=== PATIENT | male | born 1935 | race Caucasian/White ===

== ENCOUNTER → 2016-11-20 | Outpatient (CLI) | payer OTHER, BC ==
[~2016-11-20] MED LIST: ALBUTEROL2.5 MG/31 INH; ASPIRIN EC81 M1 PO; BENICAR20 MG PO; CLONAZEPAM 0.50.5 M1 PO; DEPO-TESTO200 MG/1 M SUBQ; DUONEB 2.5-0.5 M3 ML INH; FLONASE 0.05%50 MCG NASAL; IRON325 PO; LEVAQUIN 500 M500 M3 PO; LEVAQUIN 500 M500 M5 PO; LEVOTHYROXINE0.05 MG PO; LORTAB 7.5/5001 TA3 PO; MULTI VITAMIN1 EACH PO; VITAMINC500 PO; ZOCOR 20 MG TAB20 M1 PO; ZOCOR40 MG PO
== END ==
LOC: ULTRA 09:08
DX: N28.1 Cyst of kidney, acquired (principal)

== ENCOUNTER → 2017-02-27 | Outpatient (CLI) | payer OTHER, BC ==
[~2017-02-27] VITALS: Ht 175.3 cm; Wt 84.4 kg
[~2017-02-27] MED LIST changes: +BOTOX100 UNIT IM; +HYDROCODONE-APA1 TA1 PO; +IBUPROFEN 200200 M1 PO; +OLMESARTAN-HCT1 EAC1 PO; +SIMVASTATIN40 MG PO
[2017-02-27 09:26] VITALS: BP 151/71
== END | disposition home or self-care (01) ==
LOC: PAIN 07:22
DX: M47.816 Spondylosis without myelopathy or radiculopathy, lumbar region (principal); M47.817 Spondylosis without myelopathy or radiculopathy, lumbosacral region; I10 Essential (primary) hypertension; E78.00 Pure hypercholesterolemia, unspecified; E03.9 Hypothyroidism, unspecified; J44.9 Chronic obstructive pulmonary disease, unspecified; Z98.49 Cataract extraction status, unspecified eye; Z79.82 Long term (current) use of aspirin; Z79.899 Other long term (current) drug therapy

== ENCOUNTER 2017-04-25 18:42 | Emergency (ER) | payer OTHER, BC ==
[~2017-04-25] VITALS: Ht 175.3 cm; Wt 83.9 kg
== END 2017-04-25 20:55 | disposition home or self-care (01) ==
LOC: ER 18:42
DX: S80.812A Abrasion, left lower leg, initial encounter (principal); S50.812A Abrasion of left forearm, initial encounter; S00.412A Abrasion of left ear, initial encounter; W10.8XXA Fall (on) (from) other stairs and steps, initial encounter; Y93.89 Activity, other specified; Y92.89 Other specified places as the place of occurrence of the external cause; Y99.8 Other external cause status

== ENCOUNTER → 2017-05-31 | Outpatient (CLI) | payer OTHER, BC ==
[~2017-05-31] VITALS: Ht 175.3 cm; Wt 80.9 kg
--- NOTE | ~2017-05-31 | HPC ---
[facility] [place] [address] PAIN MANAGEMENT CONSULTATION Name: GUNNER BROWN [facility] #[id number] Admission: 05/31/17 Attend Phys: Reinier Urias MD Discharge: Date of : 37 Report #: [id number] THIS REPORT FOR: //name// CC: Reinier Steinberg MD DATE OF SERVICE: 05/31/2017 FOLLOWUP COMPLAINT: The pain was very well controlled over the last 3 months, but now it is beginning to come back. FOLLOWUP HISTORY: The patient is an 82-year-old gentleman who has been seen in the pain clinic because of low back pain. He has been experiencing facet joint pain and discomfort. He underwent injections in the facet areas at the last visit. He noticed significant improvement in this. He has been more active and playing golf. He has noted some return of pain and discomfort in the low back area and would like to proceed with another injection in the affected areas. He recently received a flu shot. He has been told that his A1c was about 7. He has been trying to govern his sugars accordingly. He has been keeping a diary of his blood sugars. He has lost about 10 pounds as a result of improvements in his activity and eating habits. PHYSICAL EXAMINATION: Blood pressure 142/71, pulse 89, respiratory rate 16, room air saturation 95%. Height 5 feet 9 inches, weight 178 pounds, BMI is 26.3. The patient has pain and discomfort in the lower portion of his back in the area of the L5 facet joint. IMPRESSION: 1. 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 2. Hypertension. 3. Diabetes. The patient A1c was approximately 7.? hypercholesterolemia, hypothyroidism. PLAN: We discussed treatment options with the patient. Given that he has recently had a flu shot, we will wait 2 weeks after this flu shot to perform the epidural steroid injection. We explained that steroids can decrease ones' immune system's ability to produce antibodies. We would like to thank you for letting us participate in his care. We hope he continues to improve. By: [id number] Reinier Urias MD /PMT
[2017-05-31 08:35] VITALS: BP 142/71
== END | disposition home or self-care (01) ==
LOC: PAIN 08:30
DX: M47.816 Spondylosis without myelopathy or radiculopathy, lumbar region (principal); M47.817 Spondylosis without myelopathy or radiculopathy, lumbosacral region; I10 Essential (primary) hypertension; E11.9 Type 2 diabetes mellitus without complications; E78.00 Pure hypercholesterolemia, unspecified; E03.9 Hypothyroidism, unspecified; Z98.890 Other specified postprocedural states; Z79.82 Long term (current) use of aspirin; Z79.899 Other long term (current) drug therapy

== ENCOUNTER → 2018-03-13 | Outpatient (CLI) | payer OTHER, BC | LOC: HYPER 06:31 | DX: E11.622 Type 2 diabetes mellitus with other skin ulcer (principal); L89.153 Pressure ulcer of sacral region, stage 3; L98.491 Non-pressure chronic ulcer of skin of other sites limited to breakdown of skin; R21 Rash and other nonspecific skin eruption; I10 Essential (primary) hypertension; E78.5 Hyperlipidemia, unspecified; N40.1 Benign prostatic hyperplasia with lower urinary tract symptoms; E78.00 Pure hypercholesterolemia, unspecified; K21.9 Gastro-esophageal reflux disease without esophagitis; B35.6 Tinea cruris; J44.9 Chronic obstructive pulmonary disease, unspecified; Z87.01 Personal history of pneumonia (recurrent); Z85.828 Personal history of other malignant neoplasm of skin; Z98.49 Cataract extraction status, unspecified eye; Z87.891 Personal history of nicotine dependence ==

== ENCOUNTER → 2018-04-02 | Outpatient (CLI) | payer OTHER, BC | LOC: HYPER 06:59 | DX: E11.622 Type 2 diabetes mellitus with other skin ulcer (principal); L89.153 Pressure ulcer of sacral region, stage 3; L98.491 Non-pressure chronic ulcer of skin of other sites limited to breakdown of skin; B35.6 Tinea cruris; K21.9 Gastro-esophageal reflux disease without esophagitis; N40.1 Benign prostatic hyperplasia with lower urinary tract symptoms; I10 Essential (primary) hypertension; E78.00 Pure hypercholesterolemia, unspecified; E78.5 Hyperlipidemia, unspecified; J44.9 Chronic obstructive pulmonary disease, unspecified; Z85.828 Personal history of other malignant neoplasm of skin; Z98.49 Cataract extraction status, unspecified eye; Z87.891 Personal history of nicotine dependence ==

== ENCOUNTER → 2018-05-19 | Outpatient (CLI) | payer OTHER, BC | LOC: HYPER 07:08 | DX: E11.622 Type 2 diabetes mellitus with other skin ulcer (principal); L98.491 Non-pressure chronic ulcer of skin of other sites limited to breakdown of skin; L89.153 Pressure ulcer of sacral region, stage 3; B35.6 Tinea cruris; B36.9 Superficial mycosis, unspecified; E78.00 Pure hypercholesterolemia, unspecified; E78.5 Hyperlipidemia, unspecified; J44.9 Chronic obstructive pulmonary disease, unspecified; N40.1 Benign prostatic hyperplasia with lower urinary tract symptoms; K21.9 Gastro-esophageal reflux disease without esophagitis; I10 Essential (primary) hypertension; Z87.891 Personal history of nicotine dependence; Z85.828 Personal history of other malignant neoplasm of skin ==

== ENCOUNTER → 2018-06-09 | Outpatient (CLI) | payer OTHER, BC | LOC: HYPER 06:51 | DX: E11.622 Type 2 diabetes mellitus with other skin ulcer (principal); L89.153 Pressure ulcer of sacral region, stage 3; L98.491 Non-pressure chronic ulcer of skin of other sites limited to breakdown of skin; B36.9 Superficial mycosis, unspecified; B35.6 Tinea cruris; E78.00 Pure hypercholesterolemia, unspecified; E78.5 Hyperlipidemia, unspecified; I10 Essential (primary) hypertension; J44.9 Chronic obstructive pulmonary disease, unspecified; K21.9 Gastro-esophageal reflux disease without esophagitis; N40.1 Benign prostatic hyperplasia with lower urinary tract symptoms; Z87.891 Personal history of nicotine dependence; Z85.828 Personal history of other malignant neoplasm of skin ==

== ENCOUNTER → 2018-08-11 | Outpatient (CLI) | payer OTHER, BC | LOC: RAD 08:55 | DX: J98.4 Other disorders of lung (principal); M47.814 Spondylosis without myelopathy or radiculopathy, thoracic region ==

== ENCOUNTER 2019-02-22 14:33 | Emergency (ER) | payer OTHER, BC ==
[~2019-02-22] VITALS: Ht 175.3 cm; Wt 85.3 kg
[2019-02-22 16:43] LABS: URINE BILIRUBIN NEGATIVE (Negative); URINE BLOOD NEGATIVE (Negative); URINE CLARITY CLEAR; URINE COLOR YELLOW; URINE GLUCOSE-RANDOM* NEGATIVE (Negative); URINE KETONES NEGATIVE (Negative); URINE LEUKOCYTES-REFLEX NEGATIVE (Negative); URINE NITRITE-REFLEX NEGATIVE (Negative); URINE PROTEIN (DIPSTICK) 1+ (Negative); URINE SPECIFIC GRAVITY 1.015 (1.005-1.035); URINE UROBILINOGEN 0.2 E.U./dl (0.2-1.0)
[2019-02-22 16:53] LABS: MUCUS 0-3 Light strn/LPF (None Seen); SQUAMOUS 0-3 Few /LPF (0-3); URINE RBC 0-2 Rare /HPF (0-2)
[2019-02-22 16:54] LABS: BACTERIA-REFLEX None Seen /HPF (None Seen); CASTS None Seen /LPF (None Seen); CRYSTALS None Seen /LPF (None Seen); URINE WBC-REFLEX None Seen /HPF (0-5)
[2019-02-22 17:03] LABS: ABSOLUTE NEUTROPHILS 7.2 thou/uL (1.4-8.2); BASOPHILS 0.7 % (0.0-2.0); EOSINOPHILS 4.1 % (0.0-3.0); HEMATOCRIT 50.1 % (42.0-52.0); HEMOGLOBIN 16.9 gm/dL (14.0-18.0); LYMPHOCYTES 16.9 % (24.0-44.0); MCH 31.8 pg (26.0-34.0); MCHC 33.7 g/dL (28.0-37.0); MCV 94.4 fL (80.0-100.0); MONOCYTES 7.9 % (1.0-8.0); PLATELET COUNT 331 thou/uL (150-400); POLYS 70.4 % (36.0-66.0); RDW 12.8 % (10.5-14.5); WBC 10.2 thou/uL (4.0-11.0)
[2019-02-22 17:14] LABS: ANION GAP 9 mmol/L (7-16); BUN 37 mg/dL (7-18); CALCIUM 9.4 mg/dL (8.5-10.1); CHLORIDE 101 mmol/L (98-107); CO2 28 mmol/L (21-32); CREATININE 1.4 mg/dL (0.7-1.3); GLUCOSE 109 mg/dL (74-106); POTASSIUM 4.2 mmol/L (3.5-5.1); SODIUM 138 mmol/L (136-145)
[2019-02-22 17:24] LABS: ALBUMIN 4.3 g/dL (3.4-5.0); SGOT 32 U/L (15-37); SGPT 30 U/L (30-65); TOTAL BILIRUBIN 0.2 mg/dL (<0.1-1.0); TOTAL PROTEIN 8.1 g/dL (6.4-8.2); TROPONIN-I <0.06 ng/mL (<0.06)
[2019-02-22 18:54] VITALS: BP 139/62
--- NOTE | 2019-02-23 08:11 | EKG ---
[address] [place] [address] ELECTROCARDIOGRAM REPORT Name: KEVINGUNNER Sotelo Room #: DEP JAROD Bass#: [id number] ������������������ Admission: 02/22/19 ������������������ Attend Phys: Discharge: 02/22/19 ������������������ Date of : 37 Report #: [id number] ����������������������������������������������������������������� [id number] THIS REPORT FOR: //name// [facility] ED Test Date: 2019-02-22 Test Time: 16:42:26 Pat Name: GUNNER BROWN Department: Room: Gender: Director Of Intelligence: 12 : 1935 Requested By: Radha Hernandes Order Number: [id number] MD: Macho Cadena Measurements Intervals [place] Rate: 65 P: 62 RI: 194 QRS: 40 QRSD: 101 T: 53 QT: 399 QTc: 415 Interpretive Statements Sinus rhythm Normal tracing Compared to ECG 11/26/2012 00:04:55 No significant changes Electronically Signed On 02-23-2019 8:11:05 CDT by Macho Cadena [email or web address] ��������������������������������������������� <ELECTRONICALLY SIGNED> ���������������������������������������� By: Macho Cadena MD, [facility] ��������������������������������������������� 02/23/19 0811 1642 1642 Macho Cadena MD, FACC /EPI
== END 2019-02-22 18:55 | disposition home or self-care (01) ==
LOC: ER 14:33
PROVIDERS: Physician Assistant
DX: R53.1 Weakness (principal); E11.9 Type 2 diabetes mellitus without complications; E78.5 Hyperlipidemia, unspecified; E03.9 Hypothyroidism, unspecified; Z87.891 Personal history of nicotine dependence

== ENCOUNTER → 2019-03-26 | Outpatient (CLI) | payer OTHER, BC | LOC: RAD 10:54 → SPEECH 10:54 → RAD 16:22 | DX: R13.12 Dysphagia, oropharyngeal phase (principal) ==

== ENCOUNTER → 2019-04-03 | Outpatient (CLI) | payer OTHER, BC | LOC: MRI 07:20 | DX: R25.8 Other abnormal involuntary movements (principal) ==

== ENCOUNTER 2019-04-19 14:14 | Emergency (ER) | payer OTHER, BC ==
[~2019-04-19] VITALS: Ht 175.3 cm; Wt 81.7 kg
[~2019-04-19 14:14] MED LIST changes: -LEVOTHYROXINE0.05 MG PO; +SYNTHROID100 MC1 PO
[2019-04-19 14:34] VITALS: BP 170/68
[2019-04-19] MEDS ORDERED: DOXYCYCLINE HY100 M3 PO (14:37)
[2019-04-19] MEDS ORDERED: GLIMEPIRIDE1 MG PO (14:37)
[2019-04-19] MEDS ORDERED: BYSTOLIC 5 MG5 M1 PO (14:38)
[2019-04-19] MEDS ORDERED: OLMESARTAN-HCT1 EAC1 PO (14:39)
[2019-04-19 15:23] LABS: URINE BILIRUBIN NEGATIVE (Negative); URINE BLOOD NEGATIVE (Negative); URINE CLARITY CLEAR; URINE COLOR YELLOW; URINE GLUCOSE-RANDOM* NEGATIVE (Negative); URINE KETONES NEGATIVE (Negative); URINE LEUKOCYTES-REFLEX NEGATIVE (Negative); URINE NITRITE-REFLEX NEGATIVE (Negative); URINE PROTEIN (DIPSTICK) TRACE (Negative); URINE UROBILINOGEN 0.2 E.U./dl (0.2-1.0)
[2019-04-19 16:05] LABS: ABSOLUTE NEUTROPHILS 8.5 thou/uL (1.4-8.2); BASOPHILS 0.7 % (0.0-2.0); EOSINOPHILS 1.9 % (0.0-3.0); HEMATOCRIT 44.6 % (42.0-52.0); HEMOGLOBIN 15.6 gm/dL (14.0-18.0); LYMPHOCYTES 11.7 % (24.0-44.0); MCH 32.1 pg (26.0-34.0); MCHC 34.9 g/dL (28.0-37.0); MCV 91.7 fL (80.0-100.0); MONOCYTES 6.7 % (1.0-8.0); PLATELET COUNT 359 thou/uL (150-400); RBC 4.87 mil/uL (4.50-6.00); RDW 13.1 % (10.5-14.5); WBC 10.8 thou/uL (4.0-11.0)
[2019-04-19 16:18] LABS: CALCIUM 9.4 mg/dL (8.5-10.1); CREATININE 1.3 mg/dL (0.7-1.3); POTASSIUM 4.1 mmol/L (3.5-5.1)
[2019-04-19 16:23] LABS: MAGNESIUM 1.9 mg/dL (1.8-2.4)
[2019-04-19] MEDS ORDERED: KLONOPIN0.5 MG PO (17:12)
== END 2019-04-19 17:29 | disposition home or self-care (01) ==
LOC: ER 14:14
PROVIDERS: Emergency Medicine
DX: F41.9 Anxiety disorder, unspecified (principal); S31.809A Unspecified open wound of unspecified buttock, initial encounter; E11.9 Type 2 diabetes mellitus without complications; E03.9 Hypothyroidism, unspecified; E78.5 Hyperlipidemia, unspecified; Z87.891 Personal history of nicotine dependence; X58.XXXA Exposure to other specified factors, initial encounter; Y92.89 Other specified places as the place of occurrence of the external cause; Y93.89 Activity, other specified; Y99.8 Other external cause status

== ENCOUNTER → 2019-04-22 | Outpatient (CLI) | payer OTHER, BC ==
[~2019-04-22] MED LIST changes: +BYSTOLIC 5 MG5 M1 PO; +DOXYCYCLINE HY100 M3 PO; +GLIMEPIRIDE1 MG PO; +KLONOPIN0.5 MG PO
== END ==
LOC: HYPER 07:01
DX: E11.622 Type 2 diabetes mellitus with other skin ulcer (principal); L89.153 Pressure ulcer of sacral region, stage 3; L98.411 Non-pressure chronic ulcer of buttock limited to breakdown of skin; I10 Essential (primary) hypertension; E78.00 Pure hypercholesterolemia, unspecified; E78.5 Hyperlipidemia, unspecified; K21.9 Gastro-esophageal reflux disease without esophagitis; J44.9 Chronic obstructive pulmonary disease, unspecified; Z87.01 Personal history of pneumonia (recurrent); Z85.828 Personal history of other malignant neoplasm of skin; Z87.891 Personal history of nicotine dependence

== ENCOUNTER → 2019-08-24 | Outpatient (CLI) | payer OTHER, BC | LOC: HYPER 10:10 | DX: E11.622 Type 2 diabetes mellitus with other skin ulcer (principal); L89.312 Pressure ulcer of right buttock, stage 2; L98.411 Non-pressure chronic ulcer of buttock limited to breakdown of skin; L89.153 Pressure ulcer of sacral region, stage 3; L98.491 Non-pressure chronic ulcer of skin of other sites limited to breakdown of skin; E78.00 Pure hypercholesterolemia, unspecified; E78.5 Hyperlipidemia, unspecified; I10 Essential (primary) hypertension; J44.9 Chronic obstructive pulmonary disease, unspecified; K21.9 Gastro-esophageal reflux disease without esophagitis; Z85.828 Personal history of other malignant neoplasm of skin; Z87.891 Personal history of nicotine dependence ==

== ENCOUNTER → 2019-08-24 | Outpatient (CLI) | payer OTHER, BC | LOC: SJCVC 11:32 | DX: E78.00 Pure hypercholesterolemia, unspecified (principal); M79.604 Pain in right leg; R94.31 Abnormal electrocardiogram [ECG] [EKG]; M79.605 Pain in left leg; I10 Essential (primary) hypertension; K21.9 Gastro-esophageal reflux disease without esophagitis; E78.5 Hyperlipidemia, unspecified; E03.9 Hypothyroidism, unspecified; Z85.3 Personal history of malignant neoplasm of breast; Z79.899 Other long term (current) drug therapy ==

== ENCOUNTER → 2019-08-31 | Outpatient (CLI) | payer OTHER, BC | LOC: MRI 07:06 | DX: M51.34 Other intervertebral disc degeneration, thoracic region (principal); M51.36 Other intervertebral disc degeneration, lumbar region; M12.88 Other specific arthropathies, not elsewhere classified, other specified site; M51.26 Other intervertebral disc displacement, lumbar region; M48.061 Spinal stenosis, lumbar region without neurogenic claudication; M51.37 Other intervertebral disc degeneration, lumbosacral region; M51.27 Other intervertebral disc displacement, lumbosacral region; N28.1 Cyst of kidney, acquired ==

== ENCOUNTER → 2019-09-02 | Outpatient (CLI) | payer OTHER, BC ==
[~2019-09-02] VITALS: Ht 175.3 cm; Wt 81.6 kg
[2019-09-02 08:48] VITALS: BP 153/75
--- NOTE | 2019-09-02 08:59 | NUR ---
Pain Clinic Assessment: 1. History of Osteoarthritis: SPINE JOINTS History of Rheumatoid Arthritis: 2. Height: 5 ft. 9 in. 175.3 cm. Weight: 180.0 lb. oz. 81.648 kg. Patient's BMI: 26.6 3. Vital Signs: BP: 153/75 Pulse: 66 Resp: 14 Temp: 02 Sat: 96 ECG Mon: 4. Pain Intensity: 0 TODAY ON STEROIDS 5. Fall Risk: Dizziness: N Needs help standing or walking: N Fallen in the last 3 months: N Fall risk comments: 6. Patient on Blood Thinner: None 7. History of Hypertension: Y 8. Opioid Therapy greater than 6 weeks: N Opiate Contract Signed: 9. Risk Assessment Tool Provided: 10. Functional Assessment Tool: 11. Recreational Drug Use: Never Drug Type: Tobacco Use: Former Smoker Tobacco Type: Amount or Packs/day: How Many Years: Alcohol Use: Past use Frequency: Quant:
== END | disposition home or self-care (01) ==
LOC: PAIN 06:47
DX: M54.5 Low back pain (principal); G89.29 Other chronic pain; F41.9 Anxiety disorder, unspecified; Z98.890 Other specified postprocedural states; Z79.82 Long term (current) use of aspirin; Z87.891 Personal history of nicotine dependence; Z79.899 Other long term (current) drug therapy

== ENCOUNTER → 2019-10-02 | Outpatient (CLI) | payer OTHER, BC | LOC: HYPER 08:36 | DX: E11.622 Type 2 diabetes mellitus with other skin ulcer (principal); L89.313 Pressure ulcer of right buttock, stage 3; L98.411 Non-pressure chronic ulcer of buttock limited to breakdown of skin; L89.152 Pressure ulcer of sacral region, stage 2; L98.491 Non-pressure chronic ulcer of skin of other sites limited to breakdown of skin; E11.51 Type 2 diabetes mellitus with diabetic peripheral angiopathy without gangrene; L84 Corns and callosities; J44.9 Chronic obstructive pulmonary disease, unspecified; K21.9 Gastro-esophageal reflux disease without esophagitis; E78.00 Pure hypercholesterolemia, unspecified; E78.5 Hyperlipidemia, unspecified; I10 Essential (primary) hypertension; Z85.828 Personal history of other malignant neoplasm of skin; Z87.891 Personal history of nicotine dependence; Z79.84 Long term (current) use of oral hypoglycemic drugs ==

== ENCOUNTER → 2020-01-22 | Outpatient (CLI) | payer OTHER, BC ==
[~2020-01-22] VITALS: Ht 175.3 cm; Wt 80.6 kg
[~2020-01-22] MED LIST changes: +TRAMADOL 50 MG50 MG PO; +ULTRAM 50MG TAB50 MG PO
[2020-01-22 08:25] VITALS: BP 153/68
--- NOTE | 2020-01-22 08:32 | NUR ---
Pain Clinic Assessment: 1. History of Osteoarthritis: SPINE JOINTS History of Rheumatoid Arthritis: 2. Height: 5 ft. 9 in. 175.3 cm. Weight: 177.6 lb. oz. 80.559 kg. Patient's BMI: 26.2 3. Vital Signs: BP: 153/68 Pulse: 65 Resp: 18 Temp: 02 Sat: 93 ECG Mon: 4. Pain Intensity: 6-7 5. Fall Risk: Dizziness: N Needs help standing or walking: N Fallen in the last 3 months: Y Fall risk comments: 6. Patient on Blood Thinner: None 7. History of Hypertension: Y 8. Opioid Therapy greater than 6 weeks: N Opiate Contract Signed: 9. Risk Assessment Tool Provided: 10. Functional Assessment Tool: 11. Recreational Drug Use: Never Drug Type: Tobacco Use: Former Smoker Tobacco Type: Cigarettes Amount or Packs/day: How Many Years: Alcohol Use: Past use Frequency: Quant:
--- NOTE | 2020-01-22 09:18 | NUR ---
Pain Clinic Assessment: 1. History of Osteoarthritis: SPINE JOINTS History of Rheumatoid Arthritis: 2. Height: 5 ft. 9 in. 175.3 cm. Weight: 177.6 lb. oz. 80.559 kg. Patient's BMI: 26.2 3. Vital Signs: BP: 153/68 Pulse: 65 Resp: 18 Temp: 02 Sat: 93 ECG Mon: 4. Pain Intensity: 6-7 5. Fall Risk: Dizziness: N Needs help standing or walking: N Fallen in the last 3 months: Y Fall risk comments: 6. Patient on Blood Thinner: None 7. History of Hypertension: Y 8. Opioid Therapy greater than 6 weeks: N Opiate Contract Signed: 9. Risk Assessment Tool Provided: 0-LOW RISK 10. Functional Assessment Tool: 11. Recreational Drug Use: Never Drug Type: Tobacco Use: Former Smoker Tobacco Type: Cigarettes Amount or Packs/day: How Many Years: Alcohol Use: Past use Frequency: Quant:
--- NOTE | 2020-01-22 15:51 | HPC ---
[facility] [address] [place] [address] PAIN MANAGEMENT CONSULTATION Name: GUNNER BROWN Room #: REG KAMALA SharriMelany#: [id number] Admission: 01/22/20 Attend Phys: Reinier Urias MD Discharge: Date of : 37 Report #: [id number] THIS REPORT FOR: cc: Niraj Steinberg MD, Neal A. MD Brown,Reinier Storm MD ~ CC: Reinier Steinberg DATE OF SERVICE: 01/22/2020 CHIEF COMPLAINT: "Here for epidural injection, my back is really hurting." HISTORY: The patient is a very pleasant 84-year-old gentleman who has been followed in the Pain Clinic. He has undergone epidural steroid injections in the past. He has found that they were beneficial. He has been suffering. He has had limited mobility. He is unable to play golf. Overall, things are quite uncomfortable and he has returned to the pain clinic with the hopes of undergoing an epidural injection. He has pain in his legs bilaterally. Has some right hip as well as some left thigh pain. The patient states that he fell and injured his left hip area in the recent past. He is still having some pain and discomfort down the left hip side and into the thigh. He rates his pain as a 6-7/10. Notes that the pain improves with heat, sitting, medications and massage. ALLERGIES: No known drug allergies. CURRENT MEDICATIONS: Clonazepam 0.5 mg t.i.d., tramadol 50 mg t.i.d., olmesartan/hydrochlorothiazide 40/12.5, Bystolic 10 mg daily, glimepiride 1 mg, doxycycline 100 mg b.i.d., vitamins, aspirin 81 mg, levothyroxine 100 mcg. PAIN CLINIC ASSESSMENT AND PQRS: 1. The patient has some osteoarthritic changes in his joints, back and spine. He is not being treated for rheumatoid arthritis. 2. Height 5 feet 9 inches, weight 177 pounds, BMI is 26. 3. Vital signs: Blood pressure 153/68, pulse 65, respiratory rate 18, room air saturation 93%. 4. Pain intensity -02/25. 5. Fall risk. The patient did fall a few weeks ago and did not need medical attention. 6. Blood thinner. The patient is not on a blood thinning medication. 7. Hypertension. The patient is being treated for hypertension. 8. Opioids greater than 6 weeks. The patient is receiving tramadol. 9. Risk assessment tool, low for opioid use. 10. Functional assessment tool, . 11. Recreational drug use. The patient denies. [address] [address] PAIN MANAGEMENT CONSULTATION Name: KEVINGUNNER Deepak Room #: REG CLI Kali#: [id number] Admission: 01/22/20 Attend Phys: Reinier Urias MD Discharge: Date of : 37 Report #: [id number] 12. Tobacco: The patient denies. 13. Alcohol: The patient denies. PHYSICAL EXAMINATION: GENERAL: The patient is a well-developed, well-nourished white male. Appears his stated age of 83. He is alert and oriented x 3. His affect is appropriate. Speech is fluent. HEENT: Normocephalic, atraumatic. Extraocular eye muscles intact. NECK: Without adenopathy. Notes some increased benefit and movement in his right shoulder. HEART: Regular rate. ABDOMEN: Nontender. EXTREMITIES: Upper extremity muscle strength judged to be 4+/5 for the major muscle groups in the upper extremity. Lower extremity muscle strength actually 4+/5 for the major muscle groups in the lower extremity. The patient walks with a cane. Complains of pain and discomfort that remains in the L3-L4 dermatomal distribution. IMPRESSION: 1. Lumbar radiculopathy, L3-L4. 2. History of right deltoid pain, which is improved with increased muscle use. 3. History of lumbosacral spondylosis with facet pain. 4. Hypertension. 5. Diabetes. 6. Hypercholesterolemia. 7. Hypothyroidism. RECOMMENDATIONS: We discussed treatment options with the patient. Risks and benefits of an epidural steroid injection were discussed. Possible complications of the procedure, which could include but are not limited to infection, worsening of pain, no improvement in pain, bleeding, nerve damage were discussed and the patient elects to proceed. We have discussed that the COVID-19 virus is around. Should he become infected he may have any more difficult time survive in it, then he would have not had the epidural injection. Overall, he feels his pain is quite problematic and limiting. He is staying at home. He would like to proceed with an injection. PROCEDURE NOTE: The patient was taken to the procedure area. He was then assisted in getting on the examination table. His back was sterilely prepped with a Betadine solution. A 0.25% bupivacaine was infiltrated at the L3-L4 interspace. A 17-gauge Tuohy with loss of resistance technique was used to gain access to the epidural space. There was no CSF, heme or paresthesia. Total of 80 mg of Depo-Medrol, 40 mg of triamcinolone was injected. The patient tolerated the procedure well. He remained in the pain clinic for an appropriate [address] [address] PAIN MANAGEMENT CONSULTATION Name: GUNNER BROWN [facility] #: [facility] [id number] Admission: 01/22/20 Attend Phys: Reinier Urias MD Discharge: Date of : 37 Report #: [id number] amount of time. Total of 15 seconds fluoroscopy time was used. He will follow up in the future as needed. <ELECTRONICALLY SIGNED> By: Reinier Urias MD 01/22/20 1551 1025 1324 Reinier Urias MD /PMT
== END | disposition home or self-care (01) ==
LOC: PAIN 06:42
PROVIDERS: ATTEND Anesthesiology Pain Medicine
DX: M54.16 Radiculopathy, lumbar region (principal); G89.29 Other chronic pain; I10 Essential (primary) hypertension; E11.9 Type 2 diabetes mellitus without complications; E03.9 Hypothyroidism, unspecified; E78.00 Pure hypercholesterolemia, unspecified; Z98.890 Other specified postprocedural states; Z79.899 Other long term (current) drug therapy

== ENCOUNTER → 2020-02-24 | Outpatient (CLI) | payer OTHER, BC | LOC: SJCVC 14:37 | PROVIDERS: ATTEND Internal Medicine Cardiovascular Disease | DX: R07.9 Chest pain, unspecified (principal); I10 Essential (primary) hypertension; E78.00 Pure hypercholesterolemia, unspecified; E11.9 Type 2 diabetes mellitus without complications; G20 Parkinson's disease ==

== ENCOUNTER → 2020-06-15 | Outpatient (CLI) | payer OTHER, BC ==
[~2020-06-15] VITALS: Ht 175.3 cm; Wt 78.3 kg
--- NOTE | ~2020-06-15 | HPC ---
[facility] [address] [address] PAIN MANAGEMENT CONSULTATION Name: GUNNER BROWN Room #: REG KAMALA aKli#: [id number] Admission: 06/15/20 Attend Phys: Reinier Urias MD Discharge: Date of : 37 Report #: [id number] CC: Reinier Steinberg DATE OF SERVICE: 06/15/2020 CHIEF COMPLAINT: Return of back and thigh pain. HISTORY: The patient is an 85-year-old gentleman who has been seen in the pain clinic in the past because of lumbar radiculopathy. He has undergone epidural steroid injections. These have been beneficial. He is having some pain and discomfort in the lower portion of his back. Has some pain that radiates into the left side in the anterior portion of his thigh. Does note some weakness in this area. He has had epidural steroid injections in this zone. After the last injection, he gleaned benefit from this pain. He has noted now that the pain has increased. He has been sheltering at home because of the COVID-19 pandemic. He has ventured to the pain clinic with hopes of undergoing an epidural steroid injection to help quell his pain. ALLERGIES: No known drug allergies. CURRENT MEDICATIONS: Clonazepam 0.5 mg t.i.d., tramadol 50 mg t.i.d., olmesartan/hydrochlorothiazide 40/12.5, Bystolic 10 mg daily, glimepiride 1 mg, doxycycline 100 mg b.i.d., vitamins, aspirin 81 mg, levothyroxine 100 mcg. PAIN CLINIC ASSESSMENT AND PQRS: 1. The patient has some osteoarthritic changes in his joints. They involve his back as well as his spine. He is not being treated for rheumatoid arthritis. 2. Height 5 feet 9 inches, weight 172 pounds, BMI is 25.5. 3. Vital Signs: Blood pressure 138/64, pulse 65, respiratory rate 16, room air saturation 98%. 4. Pain intensity, 6-7/10. 5. Fall history. The patient has not fallen in the last 3 months. 6. Blood thinner. The patient is not on a blood thinning medication. 7. Hypertension. The patient is being treated for hypertension. 8. Opioids greater than 6 weeks. The patient receives medication from one source. 9. Risk assessment tool, low for opioid use. 10. Functional assessment tool, . 11. Recreational drug use. The patient denies. 12. Tobacco. The patient is a former smoker. 13. Alcohol. The patient denies frequent use of alcoholic beverages. PHYSICAL EXAMINATION: GENERAL: The patient is a well-developed, well-nourished, white male. Appears his stated age. He is alert and oriented x 3. His affect is appropriate. Speech is fluent. HEENT: Normocephalic, atraumatic. Extraocular eye muscles intact. The patient is wearing a facial covering. NECK: Without adenopathy. Some increase in discomfort in his right shoulder. HEART: Regular rate. ABDOMEN: Nontender. EXTREMITIES: Upper extremity muscle strength judged to be 4+/5 for the major muscle groups in the upper extremity. Lower extremity strength is 4+/5 for the major muscle groups in the lower extremity. The patient has pain and discomfort in the L3-L4 dermatomal distribution involving the left leg. He has walked using a cane in the past. He is quite rigid. The patient is limited in his axial flexibility. IMPRESSION: 1. Lumbar radiculopathy, L3-L4. 2. History of right-sided deltoid pain. 3. History of lumbosacral spondylosis with facet pain. 4. Hypertension. 5. Diabetes. 6. Hypercholesterolemia. 7. Hypothyroidism. RECOMMENDATIONS: We discussed treatment options with the patient. Risks and benefits of an epidural steroid injection were discussed. Possible complications of the procedure were reviewed. They include but are not limited to infection, worsening of pain, no improvement in pain, nerve damage, bleeding, headache. The patient does have diabetes. There is possibility of increased blood sugars as a result of the injection. We also discussed with the patient the COVID-19 pandemic. He is aware that this is problematic. He was advised that steroids can decrease one's immunity. One may not be fair as well if infected after steroid injection. The patient elects to proceed. PROCEDURE NOTE: The patient was taken to the procedure area. He was then assisted in getting on the examination table. A pillow was placed in the abdomen to bolster and improve positioning. His back was sterilely prepped with a Betadine solution and allowed to dry. A 0.25% bupivacaine was infiltrated at the L3-L4 interspace. A 17-gauge Tuohy with loss of resistance technique was used to gain access to the epidural space. There was no CSF, heme or paresthesia. Total of 80 mg Depo-Medrol, 40 mg triamcinolone and 2 mL of 0.25% bupivacaine was injected. The patient tolerated the procedure well. He remained in the pain clinic for an appropriate amount of time. Total of 26 seconds fluoroscopy time was used. The patient will follow up in the future as needed. He will monitor his blood sugars. We would like to thank you for letting us participate in his care. We hope he continues to improve. By: [id number] Reinier Urias MD /PASCALE
[2020-06-15 10:35] VITALS: BP 138/64
--- NOTE | 2020-06-15 10:53 | NUR ---
Pain Clinic Assessment: 1. History of Osteoarthritis: SPINE JOINTS History of Rheumatoid Arthritis: Not Applicable 2. Height: 5 ft. 9 in. 175.3 cm. Weight: 172.6 lb. oz. 78.291 kg. Patient's BMI: 25.5 3. Vital Signs: BP: 138/64 Pulse: 67 Resp: 16 Temp: 02 Sat: 98 ECG Mon: 4. Pain Intensity: 6-7 5. Fall Risk: Dizziness: N Needs help standing or walking: N Fallen in the last 3 months: Y Fall risk comments: 6. Patient on Blood Thinner: None 7. History of Hypertension: Y 8. Opioid Therapy greater than 6 weeks: N Opiate Contract Signed: 9. Risk Assessment Tool Provided: 0-LOW RISK 10. Functional Assessment Tool: 11. Recreational Drug Use: Never Drug Type: Tobacco Use: Former Smoker Tobacco Type: Amount or Packs/day: How Many Years: Alcohol Use: Past use Frequency: Quant:
== END | disposition home or self-care (01) ==
LOC: PAIN 06:52
PROVIDERS: ATTEND Anesthesiology Pain Medicine
DX: M54.16 Radiculopathy, lumbar region (principal); G89.29 Other chronic pain; I10 Essential (primary) hypertension; E11.9 Type 2 diabetes mellitus without complications; E78.00 Pure hypercholesterolemia, unspecified; E03.9 Hypothyroidism, unspecified; Z98.890 Other specified postprocedural states; Z79.899 Other long term (current) drug therapy

== ENCOUNTER → 2020-08-03 | Outpatient (CLI) | payer OTHER, BC | LOC: TELEPC 06:53 → PAIN 09:49 → TELEPC 10:27 | PROVIDERS: ATTEND Anesthesiology Pain Medicine | DX: M54.16 Radiculopathy, lumbar region (principal); I10 Essential (primary) hypertension; E78.00 Pure hypercholesterolemia, unspecified; E03.9 Hypothyroidism, unspecified; Z87.39 Personal history of other diseases of the musculoskeletal system and connective tissue; Z88.8 Allergy status to other drugs, medicaments and biological substances; Z79.899 Other long term (current) drug therapy ==

== ENCOUNTER → 2020-11-30 | Outpatient (CLI) | payer OTHER, BC ==
[~2020-11-30] VITALS: Ht 175.3 cm; Wt 76.5 kg
[2020-11-30 09:42] VITALS: BP 124/56
--- NOTE | 2020-11-30 10:09 | NUR ---
Pain Clinic Assessment: 1. History of Osteoarthritis: SPINE JOINTS History of Rheumatoid Arthritis: Not Applicable 2. Height: 5 ft. 9 in. 175.3 cm. Weight: 168.6 lb. oz. 76.476 kg. Patient's BMI: 24.9 3. Vital Signs: BP: 124/56 Pulse: 65 Resp: 14 Temp: 02 Sat: 97 ECG Mon: 4. Pain Intensity: 2 TO 8 5. Fall Risk: Dizziness: N Needs help standing or walking: N Fallen in the last 3 months: N Fall risk comments: 6. Patient on Blood Thinner: None 7. History of Hypertension: Y 8. Opioid Therapy greater than 6 weeks: N Opiate Contract Signed: 9. Risk Assessment Tool Provided: 0-LOW RISK 10. Functional Assessment Tool: 11. Recreational Drug Use: Never Drug Type: Tobacco Use: Former Smoker Tobacco Type: Amount or Packs/day: How Many Years: Alcohol Use: Past use Frequency: Quant:
== END | disposition home or self-care (01) ==
LOC: PAIN 10-12 06:48
PROVIDERS: ATTEND Anesthesiology Pain Medicine
DX: M54.16 Radiculopathy, lumbar region (principal); G89.29 Other chronic pain; I10 Essential (primary) hypertension; E11.9 Type 2 diabetes mellitus without complications; E78.00 Pure hypercholesterolemia, unspecified; E03.9 Hypothyroidism, unspecified; Z98.890 Other specified postprocedural states; Z79.899 Other long term (current) drug therapy; Z87.891 Personal history of nicotine dependence

== ENCOUNTER → 2021-02-09 | Outpatient (CLI) | payer OTHER, BC | LOC: SJCVC 15:05 | PROVIDERS: ATTEND Internal Medicine Cardiovascular Disease | DX: E11.9 Type 2 diabetes mellitus without complications (principal); I10 Essential (primary) hypertension; E78.00 Pure hypercholesterolemia, unspecified; G20 Parkinson's disease; N40.0 Benign prostatic hyperplasia without lower urinary tract symptoms; J44.9 Chronic obstructive pulmonary disease, unspecified; E07.89 Other specified disorders of thyroid; K21.9 Gastro-esophageal reflux disease without esophagitis; E78.5 Hyperlipidemia, unspecified; Z79.899 Other long term (current) drug therapy; Z87.891 Personal history of nicotine dependence ==

== ENCOUNTER → 2021-04-07 | Outpatient (CLI) | payer OTHER, BC | LOC: RAD 10:26 | PROVIDERS: ATTEND Family Medicine | DX: R13.19 Other dysphagia (principal) ==

== ENCOUNTER → 2021-05-19 | Outpatient (CLI) | payer OTHER, BC | LOC: RAD 11:11 | PROVIDERS: ATTEND Family Medicine | DX: R13.12 Dysphagia, oropharyngeal phase (principal) ==

== ENCOUNTER → 2021-06-19 | Outpatient (CLI) | payer OTHER, BC | LOC: SJCVC 11:00 | PROVIDERS: ATTEND Internal Medicine Cardiovascular Disease | DX: R94.31 Abnormal electrocardiogram [ECG] [EKG] (principal); I45.89 Other specified conduction disorders; E78.00 Pure hypercholesterolemia, unspecified; G20 Parkinson's disease; E11.9 Type 2 diabetes mellitus without complications; I10 Essential (primary) hypertension; N40.0 Benign prostatic hyperplasia without lower urinary tract symptoms; K21.9 Gastro-esophageal reflux disease without esophagitis; E78.5 Hyperlipidemia, unspecified; Z87.891 Personal history of nicotine dependence; Z79.899 Other long term (current) drug therapy ==